=== PATIENT | male | born 1930 | race African-American/Black ===

== ENCOUNTER 2017-10-15 09:07 | Emergency (ER) | payer OTHER, MEDICARE ==
[2017-10-15 09:59] LABS: AGAP ISTAT 16 mmol/L (6-14); BUN ISTAT 18 mg/dL (8-26); CHLORIDE ISTAT 107 mmol/L (98-110); CREATININE ISTAT 0.8 mg/dL (0.5-1.4); GLUCOSE ISTAT 128 mg/dL (70-99); HEMATOCRIT ISTAT 38 % (37-52); HEMOGLOBIN ISTAT 12.9 g/dL (14-18); ION CA ISTAT 1.19 mmol/L (1.13-1.32); POTASSIUM ISTAT 3.8 mmol/L (3.5-5.0); SODIUM ISTAT 144 mmol/L (135-145); TOT CO2 ISTAT 26 mmol/L (23-32)
[2017-10-15 10:03] LABS: BILIRUBIN,URINE NEGATIVE (NEG); CLARITY,URINE CLEAR; COLOR,URINE YELLOW; GLUCOSE,URINE NEGATIVE (NEG); NITRITE,URINE NEGATIVE (NEG); PROTEIN,URINE NEGATIVE (NEG-TRACE)
[2017-10-15 10:04] LABS: BACTERIA,URINE FEW /HPF (0-FEW); RBC,URINE 0 /HPF (0-2)
== END 2017-10-15 11:05 | disposition home or self-care (01) ==
LOC: ER 09:07
DX: R33.9 Retention of urine, unspecified (principal); R10.30 Lower abdominal pain, unspecified
CPT/HCPCS: 36415; 51702; 80047; 81001; 85014; 85018; 99284-25